=== PATIENT | female | born 1950 | race Caucasian/White ===

== ENCOUNTER 2018-10-28 12:44 | Emergency (ER) | payer BC, MEDICARE, OTHER ==
[2018-10-28] MEDS ORDERED: Ibuprofen TAB* 600 MG ONE (13:04)
[2018-10-28] MEDS ORDERED: Ibuprofen TAB* 600 MG PO ONE (13:06)
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
[2018-10-28 14:21] VITALS: BP 147/74
== END 2018-10-28 14:19 | disposition home or self-care (01) ==
LOC: ED 12:44
DX: S16.1XXA Strain of muscle, fascia and tendon at neck level, initial encounter (principal); R51 Headache; V43.52XA Car driver injured in collision with other type car in traffic accident, initial encounter; Y92.410 Unspecified street and highway as the place of occurrence of the external cause; I10 Essential (primary) hypertension
CPT/HCPCS: 99281; A9270-GY